=== PATIENT | male | born 1955 | race American Indian/Alaskan Native ===

== ENCOUNTER 2017-02-02 18:36 | Emergency (ER) | payer MEDICARE, MEDICAID ==
[2017-02-02] MEDS ORDERED: ACTIVASE ONE ×2 (18:43→20:03)
[2017-02-02] MEDS ORDERED: CATHFLO ONE (18:43)
[2017-02-02] MEDS ORDERED: NACL 0.9% 1000 ML 1,000 ML IV ONE (18:45)
[2017-02-02] MEDS ORDERED: CATHFLO IV ONE (18:45)
[2017-02-02] MEDS ORDERED: MAGNESIUM SULFATE 2GM/50ML 2 GM/50 ML BAG IV ONE ×2 (18:45)
[2017-02-02] MEDS ORDERED: NACL 0.9% 1000 ML 1,000 ML ONE (18:50)
[2017-02-02 20:02] VITALS: BP 0/0
--- NOTE | 2017-02-02 21:04 | Emergency Department Report ---
ED CPR HPI - General Chief Complaint: Cardiac Arrest/CPR Stated Complaint: CARDIAC ARREST Time Seen by Provider: 02/02/17 19:45 Source: EMS (verbal report received from EMS.ems notes not available at time of chart dictation) Mode of arrival: Stretcher Limitations: Altered Mental Status - History of Present Illness Initial Comments: This is a 61-year-old male, -Citizen Of [place], previously unknown to this provider, who is brought to the hospital by EMS as an out of hospital STEMI notification and cardiac arrest. EMS reported that the patient was found down on the road, for uncertain duration of time, and uncertain mechanism. They report initial rhythm is V. fib /V. tach, patient shocked, given multiple rounds of epinephrine, CPR, and intubated. The prehospital EKG was transmitted, and was suggestive of a STEMI. Upon arrival to the ER, code STEMI had already been called overhead, and the patient was pulseless and receiving active CPR. Patient received aggressive CPR, and standard medications as per ACLS protocol. Pulses cannot be obtained at all, and given the patient's EKG and presenting clinical findings, the patient was treated with alteplase and a 3 stage infusion for acute coronary syndrome/STEMI. Patient was in refractory fine V. fib, and received multiple shocks, magnesium, and amiodarone, and then received dual sequential defibrillation multiple times , in addition to standard ACS interventions. A right lower extremity intraosseous IV was placed by myself with 1 attempt with no obvious complications. Patient received high-quality CPR and ACLS treatment for over one hour in the ER. Unfortunately, pulses could not be obtained, pupils remained midpoint and nonreactive to light, no coordinated cardiac activity was noted on ultrasound/ echocardiogram, and resuscitation efforts were terminated after prolonged resuscitation. No family is available at this time MD Complaint: found unresponsive -: unknown Shock Advised: Yes Initial Findings in the Field: no pulse, VTACH/VFIB ROSC in the Field: No Associated Injuries: No Treatments Prior to Arrival: intubation, chest compressions, defribrillated shocks #, epinephrine mgs #, amiodarone - Related Data Allergies Allergy/AdvReac Type Severity Reaction Status Date / Time Unable to Assess Allergy Unverified 02/02/17 19:47 ED Review of Systems ROS: Stated complaint: CARDIAC ARREST Other details as noted in HPI ED Physical Exam - General Limitations: Altered Mental Status, Other (intubated, GCS of 3) General appearance: other (patient is nonverbal) - Eye Eye exam: Present: other (pupils are midpoint and do not react to light) - ENT ENT exam: Present: other (endotracheal tube is in the oropharynx) - Neck Neck exam: Present: normal inspection - Respiratory Respiratory exam: Present: other (no breath sounds and is [id number] ventilation is applied) - Cardiovascular Cardiovascular Exam: Present: other (patient is pulseless). Absent: regular rate - GI/Abdominal GI/Abdominal exam: Present: distended, other (midline scar noted) - exam: Present: normal inspection - Extremities Exam Extremities exam: Present: normal inspection - Back Exam Back exam: Present: normal inspection - Neurological Exam Neurological exam: Present: other (intubated, GCS of 3) - Skin Skin exam: Present: dry ED Course Vital Signs 02/02/17 18:36 Pulse Rate 0 L Respiratory 0 L Rate Blood Pressure 0/0 - Reevaluation(s) Reevaluation #1: 02/02/17 21:05 The patient not a candidate for labor delivery rn as he had no pulses and received continuous CPR for over an hour. Given EKG morphology and clinical presentation , I felt that was in the patient's best interest to receive TPA, as he demonstrated no independent signs of life in the emergency room, and it is very doubtful that he would've survived [employer] intervention. - IO Right Tibia Consent Obtained: emergent situation Time Out Performed: Yes IO Instrument Used to Penetrate the Cortex: battery powered IO drill Patient Tolerated Procedure: well Complications: none Critical Care Time: Yes Critical care time in (mins) excluding proc time.: 60 Critical care attestation.: If time is entered above; I have spent that time in minutes in the direct care of this critically ill patient, excluding procedure time. ED Disposition Clinical Impression: Cardiac arrest Disposition: DC-20 Is pt being admited?: No Does the pt Need Aspirin: No Condition: Undetermined Referrals: PRIMARY CARE, [Primary Care Provider] - 3-5 Days
[2017-02-02] MEDS ORDERED: ADRENALIN ONE (22:35)
[2017-02-02] MEDS ORDERED: D50W (25GM) Vial IV ONE (22:35)
[2017-02-02] MEDS ORDERED: SODIUM BICARBONATE IV ONE (22:35)
[2017-02-02] MEDS ORDERED: CORDARONE IV ONE (22:35)
[2017-02-02] MEDS ORDERED: CALCIUM CHLORIDE IV ONE (22:35)
[2017-02-02] MEDS ORDERED: ZEMURON IV ONE (22:37)
[2017-02-02] MEDS ORDERED: AMIDATE IV ONE (22:37)
== END 2017-02-02 21:20 ==
LOC: ED 18:40
DX: I46.9 Cardiac arrest, cause unspecified (principal)
CPT/HCPCS: 36680; 37195; 82962; 92950; 99291; J0171; J0282; J2997; J3475; J7030; 96374